=== PATIENT | female | born 2000 | race Caucasian/White ===

== ENCOUNTER 2021-09-25 14:35 | Emergency (ER) | payer OTHER ==
[~2021-09-25] VITALS: Ht 162.6 cm; Wt 47.2 kg
[2021-09-25 14:56] VITALS: BP 117/66
--- NOTE | 2021-09-25 15:06 | NUR ---
pt taken to xray via wheelchair
[2021-09-25] MEDS ORDERED: IBUP-1842 PO (15:46)
--- NOTE | 2021-09-25 17:12 | NUR ---
no nursing interventions done at this time
--- NOTE | 2021-09-25 17:15 | NUR ---
cap refill <3, hand appears pink and warm. pt denies maxim wrap being too tight at this time.
[2021-09-25 17:18] VITALS: BP 117/66
--- NOTE | 2021-09-25 17:18 | NUR ---
Patient discharged with v/s stable. Written and verbal after care instructions given and explained. Patient alert, oriented and verbalized understanding of instructions. Ambulatory with friend to car. All questions addressed prior to discharge. ID band removed. Patient advised to follow up with PMD. Rx of ibuprofen (sent) given. Patient educated on indication of medication including possible reaction and side effects. Opportunity to ask questions provided and answered. copy of work note given
== END 2021-09-25 17:18 | disposition home or self-care (01) ==
LOC: MED 14:35
DX: S63.91XA Sprain of unspecified part of right wrist and hand, initial encounter (principal); Z79.1 Long term (current) use of non-steroidal anti-inflammatories (NSAID); X58.XXXA Exposure to other specified factors, initial encounter; Y92.89 Other specified places as the place of occurrence of the external cause; Y93.54 Activity, bowling; Y99.8 Other external cause status
CPT/HCPCS: 73130; 99283

== ENCOUNTER 2021-11-11 14:55 | Emergency (ER) | payer OTHER ==
[~2021-11-11] VITALS: Ht 162.6 cm; Wt 45.8 kg
[~2021-11-11 14:55] MED LIST: IBUP-1842 PO
[2021-11-11 15:18] VITALS: BP 112/71
[2021-11-11] MEDS ORDERED: LIDO15SO PO (15:33)
[2021-11-11 16:17] VITALS: BP 102/65
--- NOTE | 2021-11-11 16:19 | NUR ---
Patient discharged with v/s stable. Written and verbal after care instructions given and explained. Patient alert, oriented and verbalized understanding of instructions. Ambulatory with steady gait. All questions addressed prior to discharge. ID band removed. Patient advised to follow up with PMD. Rx of LIDOCAINE given. Patient educated on indication of medication including possible reaction and side effects. Opportunity to ask questions provided and answered.
== END 2021-11-11 16:17 | disposition home or self-care (01) ==
LOC: MED 14:55
DX: J02.9 Acute pharyngitis, unspecified (principal); R05.9 Cough, unspecified
CPT/HCPCS: 99283

== ENCOUNTER 2023-01-22 09:26 | Emergency (ER) | payer OTHER ==
[~2023-01-22] VITALS: Ht 162.6 cm; Wt 54.4 kg
[~2023-01-22 09:26] MED LIST changes: +LIDO15SO4 PO
[2023-01-22 09:27] VITALS: BP 121/77; PULSE 91; RESP 16; TEMP 97.3; O2SAT 97
[2023-01-22] MEDS ORDERED: POLYETHYLENE GLYCOL 17 GM/PKT PO ONE (10:00)
[2023-01-22] MEDS ORDERED: DOCUSATE 100 MG/10 ML UDC PO SCH (10:00)
[2023-01-22] MEDS ORDERED: SODIUM PHOSPHATE 118 ML ENEM RC ONE (10:00)
[2023-01-22] MEDS ORDERED: LACTULOSE 20 GM/30 ML UDC PO ONE (10:00)
[2023-01-22] MEDS ORDERED: DOCU-299 PO (11:12)
[2023-01-22] MEDS ORDERED: POLY17PD72 PO (11:12)
== END 2023-01-22 11:11 | disposition home or self-care (01) ==
LOC: MED 09:26
DX: K59.00 Constipation, unspecified (principal); J45.909 Unspecified asthma, uncomplicated; Z79.899 Other long term (current) drug therapy
CPT/HCPCS: 81025; 99284